=== PATIENT | female | born 1990 | race African-American/Black ===

== ENCOUNTER 2023-04-05 11:43 | Emergency (ER) | payer OTHER ==
[2023-04-05 11:54] VITALS: RESP 19; BMI 27.6
[2023-04-05 13:00] LABS: BASO % 0.6 % (0-2.0); HEMATOCRIT 35.5 % (32.4-45.2); HEMOGLOBIN 11.8 GM/dL (10.7-15.3); LYMPH % 23.3 % (8-40); MCH 25.6 pg (25.7-33.7); MCHC 33.3 g/dl (32.0-36.0); MEAN CELL VOLUME 76.9 fl (80-96); MEAN PLT VOLUME 7.9 fl (7.5-11.1); MONO % 9.5 % (3.8-10.2); NEUT % 65.6 % (42.8-82.8); PLATELET COUNT 389 10^3/uL (134-434); RBC 4.62 M/mm3 (3.60-5.2); RDW 18.5 % (11.6-15.6); URINE APPEARANCE CLEAR; URINE BILIRUBIN NEGATIVE (NEGATIVE); URINE COLOR YELLOW; URINE GLUCOSE (UA) NEGATIVE (NEGATIVE); URINE KETONE NEGATIVE (NEGATIVE); URINE LEUK ESTERASE NEGATIVE (NEGATIVE); URINE NITRITE NEGATIVE (NEGATIVE); URINE PROTEIN NEGATIVE (NEGATIVE); URINE UROBILINOGEN 0.2 mg/dL (0.2-1.0); WHITE BLOOD COUNT 7.4 K/mm3 (4.0-10.0)
[2023-04-05 13:18] LABS: POTASSIUM 3.7 mmol/L (3.5-5.1)
[2023-04-05 13:20] LABS: ALBUMIN 3.3 g/dl (3.4-5.0); BLOOD UREA NITROGEN 6.3 mg/dL (7-18); CALCIUM 8.9 mg/dL (8.5-10.1)
[2023-04-05 13:23] LABS: CREATININE 0.6 mg/dL (0.55-1.3)
[2023-04-05 13:25] LABS: BILIRUBIN,TOTAL 0.3 mg/dL (0.2-1); TOT PROT 6.8 g/dl (6.4-8.2)
[2023-04-05 15:59] VITALS: BP 122/78; PULSE 78; TEMP 97.9
== END 2023-04-05 15:59 | disposition home or self-care (01) ==
LOC: JER 11:43
DX: N76.0 Acute vaginitis (principal); Z33.1 Pregnant state, incidental
CPT/HCPCS: 36415; 76810-TC; 80053; 81003; 84702; 85025; 86850; 86900; 86901; 87491; 87591; 99284-25